=== PATIENT | female | born 1950 | race Caucasian/White ===

== ENCOUNTER 2017-11-13 08:41 | Outpatient (CLI) | payer MEDICARE, OTHER ==
[~2017-11-13 08:41] MED LIST: HYDR-569 PO
[2017-11-13 08:47] VITALS: BP 115/69
== END 2017-11-13 09:35 | disposition home or self-care (01) ==
LOC: ORTHO 08:41
PROVIDERS: ATTEND Nurse Practitioner
DX: S52.501D Unspecified fracture of the lower end of right radius, subsequent encounter for closed fracture with routine healing (principal); M19.031 Primary osteoarthritis, right wrist; I10 Essential (primary) hypertension; F17.210 Nicotine dependence, cigarettes, uncomplicated; F10.10 Alcohol abuse, uncomplicated; X58.XXXD Exposure to other specified factors, subsequent encounter
CPT/HCPCS: 73110

== ENCOUNTER 2017-12-11 09:40 | Outpatient (CLI) | payer MEDICARE, OTHER ==
[2017-12-11 09:40] VITALS: BP 132/95
== END 2017-12-11 10:10 | disposition home or self-care (01) ==
LOC: ORTHO 09:40
PROVIDERS: ATTEND Nurse Practitioner
DX: S52.501D Unspecified fracture of the lower end of right radius, subsequent encounter for closed fracture with routine healing (principal); F17.210 Nicotine dependence, cigarettes, uncomplicated; I10 Essential (primary) hypertension; X58.XXXD Exposure to other specified factors, subsequent encounter
CPT/HCPCS: 73110